=== PATIENT | male | born 1945 | race Caucasian/White ===

== ENCOUNTER → 2021-06-25 | Outpatient (CLI) | payer MEDICARE ==
[~2021-06-25] MED LIST: AMLODIPINE BESY10 MG PO; ASPIRIN EC81 MG PO; CARVEDILOL25 MG PO; CLOPIDOGREL75 MG PO; CYCLOBENZAPRINE10 MG PO; ECOTRIN81 MG PO; EUTHYROX88 MCG PO; FINASTERIDE5 MG PO; LOVASTATIN40 MG PO; OXYCODON-ACETA1 EAC1 PO; VITAMIN D3; VOLTAREN; ZOFRAN 4 MG TAB4 MG PO
== END ==
LOC: LAB 10:15
PROVIDERS: Orthopaedic Surgery
DX: Z01.812 Encounter for preprocedural laboratory examination (principal)
CPT/HCPCS: 36415; 80048; 86850; 86900; 86901

== ENCOUNTER 2021-06-26 05:42 | Day surgery (SDC) | payer MEDICARE ==
[~2021-06-26] VITALS: Ht 182.9 cm; Wt 102.1 kg
[~2021-06-26 05:42] MED LIST changes: -ASPIRIN EC81 MG PO; -CYCLOBENZAPRINE10 MG PO; -OXYCODON-ACETA1 EAC1 PO; -ZOFRAN 4 MG TAB4 MG PO
[2021-06-26] MEDS ORDERED: CYCLOBENZAPRINE10 MG PO (08:48)
[2021-06-26] MEDS ORDERED: OXYCODON-ACETA1 EAC1 PO (08:48)
[2021-06-26] MEDS ORDERED: ASPIRIN EC81 MG PO (08:48)
[2021-06-26] MEDS ORDERED: ZOFRAN 4 MG TAB4 MG PO (08:48)
--- NOTE | 2021-06-27 02:04 | NUR ---
pt came to the floor with a lutz in place and it was dc'd per dayshift.
[2021-06-27 07:06] LABS: HEMOGLOBIN 12.6 gm/dl (14.0-17.5); RED BLOOD COUNT 4.24 M/UL (4.20-5.50); WHITE BLOOD COUNT 17.8 K/UL (4.5-11.0)
== END 2021-06-27 12:39 | disposition home health service (06) ==
LOC: OR 05:42 → CDU 08:00 → M/S 12:25 → CDU 17:45 → OR 17:45 → EDSTATUS 17:45 → OR 06-27 12:39
PROVIDERS: Orthopaedic Surgery
DX: M16.12 Unilateral primary osteoarthritis, left hip (principal); G89.18 Other acute postprocedural pain; I10 Essential (primary) hypertension; E78.5 Hyperlipidemia, unspecified; E03.9 Hypothyroidism, unspecified; Z86.73 Personal history of transient ischemic attack (TIA), and cerebral infarction without residual deficits; Z23 Encounter for immunization; Z79.82 Long term (current) use of aspirin; Z79.899 Other long term (current) drug therapy; Z20.822 Contact with and (suspected) exposure to COVID-19
CPT/HCPCS: 73501; 73502; 76000; 80048; 85027; 90686; 97110-GP-CQ; 97116-GP-CQ; 97161; 97166; 97535; J0171; J0690; J1100; J2001; J2270; J2704; J2795; J3010; J3370; J7050; J7120

== ENCOUNTER → 2021-12-21 | Outpatient (CLI) | payer MEDICARE ==
[~2021-12-21] MED LIST changes: +ASPIRIN EC81 MG PO; +CYCLOBENZAPRINE10 MG PO; +OXYCODON-ACETA1 EAC1 PO; +ZOFRAN 4 MG TAB4 MG PO
== END ==
LOC: KOH-I 12-13 10:30
DX: M48.062 Spinal stenosis, lumbar region with neurogenic claudication (principal); M51.36 Other intervertebral disc degeneration, lumbar region; M43.16 Spondylolisthesis, lumbar region
CPT/HCPCS: 72148

== ENCOUNTER → 2022-01-29 | Outpatient (CLI) | payer MEDICARE | LOC: KOH-I 13:23 | DX: M51.16 Intervertebral disc disorders with radiculopathy, lumbar region (principal) | CPT/HCPCS: 72131 ==

== ENCOUNTER → 2022-02-07 | Outpatient (CLI) | payer MEDICARE ==
[~2022-02-07] MED LIST changes: +CENTRUM SILVER1 EAC2 PO; +VITAMIN D350 MC3 PO; +ZINC
[2022-02-07 12:43] LABS: HEMOGLOBIN 15.4 gm/dl (14.0-17.5); RED BLOOD COUNT 5.18 M/UL (4.20-5.50); WHITE BLOOD COUNT 9.9 K/UL (4.5-11.0)
== END ==
LOC: OPSV2 10:00 → EDSTATUS 12:30
PROVIDERS: Orthopaedic Surgery
DX: Z01.818 Encounter for other preprocedural examination (principal); M51.16 Intervertebral disc disorders with radiculopathy, lumbar region; M48.061 Spinal stenosis, lumbar region without neurogenic claudication; I45.10 Unspecified right bundle-branch block; R94.31 Abnormal electrocardiogram [ECG] [EKG]
CPT/HCPCS: 71046; 80048; 81001; 83036; 85025; 87081; 93005

== ENCOUNTER → 2022-02-25 | Outpatient (CLI) | payer MEDICARE ==
[~2022-02-25] MED LIST changes: -ZINC; +ZINC50 MG PO
== END ==
LOC: LAB 10:59
PROVIDERS: Orthopaedic Surgery
DX: Z01.812 Encounter for preprocedural laboratory examination (principal)
CPT/HCPCS: 36415; 80048; 86850; 86900; 86901

== ENCOUNTER 2022-02-26 05:08 | Inpatient (IN) | payer MEDICARE ==
[~2022-02-26] VITALS: Ht 177.8 cm; Wt 108.0 kg
[2022-02-26 12:12] LABS: RED BLOOD COUNT 4.72 M/UL (4.20-5.50); WHITE BLOOD COUNT 10.6 K/UL (4.5-11.0)
[2022-02-27 05:13] LABS: HEMOGLOBIN 13.4 gm/dl (14.0-17.5); RED BLOOD COUNT 4.45 M/UL (4.20-5.50)
[2022-02-27 05:18] LABS: WHITE BLOOD COUNT 19.5 K/UL (4.5-11.0)
[2022-02-28 04:19] LABS: HEMOGLOBIN 12.1 gm/dl (14.0-17.5); RED BLOOD COUNT 4.11 M/UL (4.20-5.50); WHITE BLOOD COUNT 15.7 K/UL (4.5-11.0)
[2022-03-01 03:15] LABS: HEMOGLOBIN 12.9 gm/dl (14.0-17.5); RED BLOOD COUNT 4.27 M/UL (4.20-5.50)
[2022-03-01 03:16] LABS: WHITE BLOOD COUNT 11.5 K/UL (4.5-11.0)
[2022-03-01] MEDS ORDERED: ATORVASTATIN CA10 MG PO (13:53)
[2022-03-01 14:05] LABS: HEMOGLOBIN 13.5 gm/dl (14.0-17.5); RED BLOOD COUNT 4.44 M/UL (4.20-5.50); WHITE BLOOD COUNT 12.4 K/UL (4.5-11.0)
[2022-03-01] MEDS ORDERED: ROXICODONE5 MG PO (14:37)
== END 2022-03-01 16:20 | disposition home or self-care (01) | DRG 460 ==
LOC: OR 05:08 → CCU 13:49 → PROG CARE 02-28 06:13
PROVIDERS: Internal Medicine; Nurse Practitioner Family; ADMIT Orthopaedic Surgery
PROC: 4A11X4G Monitoring of Peripheral Nervous Electrical Activity, Intraoperative, External Approach (ICD-10-PCS; 2022-02-26)
PROC: 0SG0071 Fusion of Lumbar Vertebral Joint with Autologous Tissue Substitute, Posterior Approach, Posterior Column, Open Approach (ICD-10-PCS; principal; 2022-02-26 07:30)
PROC: 01NB0ZZ Release Lumbar Nerve, Open Approach (ICD-10-PCS; 2022-02-26 07:30)
DX: M47.896 Other spondylosis, lumbar region (principal); N17.9 Acute kidney failure, unspecified; D62 Acute posthemorrhagic anemia; M54.16 Radiculopathy, lumbar region; M43.16 Spondylolisthesis, lumbar region; I12.9 Hypertensive chronic kidney disease with stage 1 through stage 4 chronic kidney disease, or unspecified chronic kidney disease; E78.5 Hyperlipidemia, unspecified; N18.30 Chronic kidney disease, stage 3 unspecified; Z96.642 Presence of left artificial hip joint; D69.6 Thrombocytopenia, unspecified; E66.01 Morbid (severe) obesity due to excess calories; N40.0 Benign prostatic hyperplasia without lower urinary tract symptoms; E03.9 Hypothyroidism, unspecified; D72.829 Elevated white blood cell count, unspecified; I65.29 Occlusion and stenosis of unspecified carotid artery; Z79.01 Long term (current) use of anticoagulants; Z79.82 Long term (current) use of aspirin; Z82.49 Family history of ischemic heart disease and other diseases of the circulatory system; Z80.0 Family history of malignant neoplasm of digestive organs; Z86.73 Personal history of transient ischemic attack (TIA), and cerebral infarction without residual deficits; Z68.34 Body mass index [BMI] 34.0-34.9, adult; Z95.5 Presence of coronary angioplasty implant and graft
CPT/HCPCS: 36415; 72100; 76000; 80048; 83540; 83550; 83735; 85027; 86850; 86900; 86901; 94760; 97116; 97116-GP-CQ; 97162; 97165; 97530; 97530-GP-CQ; 97535; C1713; C1762; J0690; J1100; J1170; J2001; J2250; J2405; J2704; J3010; J3370; J7040